=== PATIENT | female | born 1955 | race Caucasian/White ===

== ENCOUNTER → 2023-07-30 07:19 | Outpatient (REF) | payer OTHER, SELFPAY | LOC: RAD 07:19 | PROVIDERS: ATTENDING PHYSICIAN Physician Assistant; REFERRING PHYSICIAN Nurse Practitioner | DX: R39.89 Other symptoms and signs involving the genitourinary system (principal); R10.2 Pelvic and perineal pain; Z87.19 Personal history of other diseases of the digestive system | CPT/HCPCS: 74177; Q9967 ==

== ENCOUNTER 2023-08-12 08:46 | Outpatient (RCR) | payer OTHER, SELFPAY | END 2023-08-12 23:59 | disposition home or self-care (01) | LOC: RPT 08:46 | PROVIDERS: ATTENDING PHYSICIAN Nurse Practitioner; FAMILY PHYSICIAN Family Medicine | DX: R35.0 Frequency of micturition (principal); N39.3 Stress incontinence (female) (male); N81.12 Cystocele, lateral; N81.3 Complete uterovaginal prolapse; N81.6 Rectocele; Z73.6 Limitation of activities due to disability | CPT/HCPCS: 97110; 97161; 97530 ==

== ENCOUNTER 2023-09-16 12:47 | Outpatient (RCR) | payer OTHER, SELFPAY | END 2023-09-16 23:59 | disposition home or self-care (01) | LOC: RPT 12:47 | PROVIDERS: ATTENDING PHYSICIAN Nurse Practitioner; FAMILY PHYSICIAN Family Medicine | DX: N39.3 Stress incontinence (female) (male); R35.0 Frequency of micturition; N81.12 Cystocele, lateral; N81.3 Complete uterovaginal prolapse; N81.6 Rectocele; Z73.6 Limitation of activities due to disability | CPT/HCPCS: 97110; 97112 ==

== ENCOUNTER 2023-10-07 12:45 | Outpatient (RCR) | payer OTHER, SELFPAY | END 2023-10-07 23:59 | disposition home or self-care (01) | LOC: RPT 12:45 | PROVIDERS: ATTENDING PHYSICIAN Nurse Practitioner; FAMILY PHYSICIAN Family Medicine | DX: R35.0 Frequency of micturition (principal); N39.3 Stress incontinence (female) (male); N81.12 Cystocele, lateral; N81.3 Complete uterovaginal prolapse; N81.6 Rectocele; Z73.6 Limitation of activities due to disability | CPT/HCPCS: 97110; 97112 ==

== ENCOUNTER 2023-10-22 12:40 | Outpatient (RCR) | payer OTHER, SELFPAY | END 2023-10-22 23:59 | disposition home or self-care (01) | LOC: RPT 12:40 | PROVIDERS: ATTENDING PHYSICIAN Nurse Practitioner; FAMILY PHYSICIAN Family Medicine | DX: R35.0 Frequency of micturition (principal); N39.3 Stress incontinence (female) (male); N81.12 Cystocele, lateral; N81.3 Complete uterovaginal prolapse; N81.6 Rectocele; Z73.6 Limitation of activities due to disability | CPT/HCPCS: 97110; 97530 ==

== ENCOUNTER 2023-10-28 06:23 | Day surgery (SDC) | payer OTHER, SELFPAY ==
[2023-10-24 09:45] VITALS: BMI 26.1
[2023-10-24 10:37] LABS: Hematocrit 40.1 % (37.0-47.0); Mean Corp Hgb Conc. 34.9 g/dL (33.0-37.0); Mean Corpuscular Hgb 33.3 pg (27.0-31.0); Mean Corpuscular Volume 95.2 fL (81.0-99.0); Mean Platelet Volume 9.5 fL (7.4-10.4); Platelet Count 258 10^3/uL (130-400); Red Blood Cell Count 4.21 10^6/uL (4.20-5.40); Red Cell Dist. Width 13.2 % (11.5-14.5); White Blood Cell Count 5.4 10^3/uL (4.8-10.8)
[2023-10-24 11:48] LABS: Blood Urea Nitrogen 22 mg/dl (7-17); Calcium 9.8 mg/dl (8.4-10.2); Carbon Dioxide 28 mmol/L (22-30); Chloride 98 mmol/L (98-107); Estimated Creatinine Clearance 65 ml/min; Glucose 100 mg/dl (70-99); Potassium 4.4 mmol/L (3.5-5.1); Sodium 140 mmol/L (135-145); eGFR > 60.00
[2023-10-28] VITALS (9 sets, daily range): BP systolic 119–141; BP diastolic 54–75; BMI 26.1
[2023-10-28] MEDS: Pyridium 200 MG PO (13:07)
[2023-10-28] MEDS: NORMOSOL-R/PLASMALYTE-A 1000 IV (13:08)
== END 2023-10-28 18:22 | disposition home or self-care (01) ==
LOC: SDS 06:23
PROVIDERS: ATTENDING PHYSICIAN Obstetrics & Gynecology; FAMILY PHYSICIAN Family Medicine
DX: N81.3 Complete uterovaginal prolapse (principal); N39.3 Stress incontinence (female) (male)
CPT/HCPCS: 57282; 57265; 57288; 36415; 80048; 85027; 86850; 86900; 86901; 93005; C1771

== ENCOUNTER → 2024-02-24 08:35 | Outpatient (REF) | payer OTHER, SELFPAY | LOC: WDC 08:35 | PROVIDERS: ATTENDING PHYSICIAN Family Medicine | DX: Z12.31 Encounter for screening mammogram for malignant neoplasm of breast (principal) | CPT/HCPCS: 77063; 77067 ==